=== PATIENT | male | born 1980 | race Caucasian/White ===

== ENCOUNTER 2018-03-10 18:02 | Inpatient (IN) | payer MEDICAID ==
[~2018-03-10] VITALS: Ht 188 cm; Wt 98.0 kg
[~2018-03-10 18:02] MED LIST: NO HOME MEDS; OMEP-84 PO; PROM25TA14 PO
[2018-03-10 21:13] LABS: BASOPHILS # (AUTO) 0.1 X10'3 (0-0.2); BASOPHILS % (AUTO) 0.7 % (0-1); EOSINOPHILS # (AUTO) 0.7 X10'3 (0-0.9); EOSINOPHILS % (AUTO) 6.5 % (0-6); HEMATOCRIT 47.7 % (42.0-52.0); HEMOGLOBIN 15.6 g/dl (14.0-17.9); LYMPHOCYTES # (AUTO) 3.1 X10'3 (1.1-4.8); LYMPHOCYTES % (AUTO) 30.9 % (21-51); MEAN CORPUSCULAR HGB CONC 32.8 % (33.0-36.5); MEAN CORPUSCULAR VOLUME 88.5 FL (78-98); MONOCYTES # (AUTO) 0.8 X10'3 (0-0.9); MONOCYTES % (AUTO) 7.6 % (2-12); NEUTROPHILS # (AUTO) 5.5 X10'3 (1.8-7.7); NEUTROPHILS % (AUTO) 54.3 % (42-75); PLATELET COUNT 211 X10'3 (140-440); RED BLOOD COUNT 5.39 X10'6 (4.70-6.10); RED CELL DISTRIBUTION WIDTH 14.3 % (11.5-14.5); WHITE BLOOD COUNT 10.1 X10'3 (4.5-11.0)
[2018-03-10 21:26] LABS: ALANINE AMINOTRANSFERASE 74 U/L (12-78); ALBUMIN 3.6 G/DL (3.4-5.0); ALBUMIN/GLOBULIN RATIO 1.1 (1.1-1.5); ALKALINE PHOSPHATASE 133 IU/L (46-116); ANION GAP 11 (8-16); ASPARTATE AMINO TRANSFERASE 41 U/L (10-37); BILIRUBIN,TOTAL 0.7 MG/DL (0.1-1.0); BLOOD UREA NITROGEN 28 MG/DL (7-18); CALCIUM 8.9 MG/DL (8.5-10.1); CHLORIDE 105 MMOL/L (99-107); CREATININE 1.47 MG/DL (0.60-1.10); GLUCOSE 104 MG/DL (70-104); POTASSIUM 4.3 MMOL/L (3.5-5.1); SODIUM 143 MMOL/L (135-145); TOTAL CARBON DIOXIDE 26.8 MMOL/L (24-32); eGFR 55 ML/MIN
[2018-03-10 21:34] LABS: D-DIMER 0.46 MG/L FEU (0-0.50)
[2018-03-10 21:35] LABS: TROPONIN I < 0.04 NG/ML (0.0-0.05)
--- NOTE | 2018-03-10 21:36 | NUR ---
Rec'd report from ROHAN [place]. The patient is resting comfortably on gurney, labs are pending. I will continue to monitor.
--- NOTE | 2018-03-10 22:32 | NUR ---
Patient resting comfortably on gurney, reports no heart palpatations or pain.
[2018-03-10] MEDS ORDERED: acetaminophen 325mg tablet PO PRN (23:05)
[2018-03-10] MEDS ORDERED: magnesium hydroxide 30ml (MOM) UD suspension PO PRN (23:05)
[2018-03-10] MEDS ORDERED: ondansetron/PF 4mg/2ml inj IV PRN (23:05)
[2018-03-10] MEDS ORDERED: mag hydrox/Alum hydrox/simeth 30ml oral suspension PO PRN (23:05)
--- NOTE | 2018-03-10 23:39 | NUR ---
Awaiting pt arrival. I have received report from Jenny MADRIGAL and had the opportunity to ask questions and assume patient care.
--- NOTE | 2018-03-10 23:45 | NUR ---
pt arrived with belongings. no signs of distress. IV intact. Significant other at bedside. call light and frq used belongings within reach. will continue to monitor.
[2018-03-11] VITALS (9 sets, daily range): BP systolic 123–141; BP diastolic 86–100
[2018-03-11 05:57] LABS: BASOPHILS # (AUTO) 0.1 X10'3 (0-0.2); BASOPHILS % (AUTO) 0.7 % (0-1); EOSINOPHILS # (AUTO) 0.6 X10'3 (0-0.9); EOSINOPHILS % (AUTO) 6.9 % (0-6); HEMATOCRIT 43.4 % (42.0-52.0); HEMOGLOBIN 14.4 g/dl (14.0-17.9); LYMPHOCYTES # (AUTO) 3.2 X10'3 (1.1-4.8); LYMPHOCYTES % (AUTO) 36.8 % (21-51); MEAN CORPUSCULAR HEMOGLOBIN 29.1 PG (27.0-31.0); MEAN CORPUSCULAR VOLUME 88.2 FL (78-98); MEAN PLATELET VOLUME 10.7 FL (7.4-10.4); MONOCYTES # (AUTO) 0.7 X10'3 (0-0.9); MONOCYTES % (AUTO) 8.1 % (2-12); NEUTROPHILS # (AUTO) 4.2 X10'3 (1.8-7.7); NEUTROPHILS % (AUTO) 47.5 % (42-75); PLATELET COUNT 191 X10'3 (140-440); RED BLOOD COUNT 4.92 X10'6 (4.70-6.10); RED CELL DISTRIBUTION WIDTH 14.4 % (11.5-14.5); WHITE BLOOD COUNT 8.8 X10'3 (4.5-11.0)
--- NOTE | 2018-03-11 06:00 | NUR ---
Problems reprioritized. Patient report given, questions answered & plan of care reviewed with Yulia MADRIGAL.
[2018-03-11 06:05] LABS: ALBUMIN 3.1 G/DL (3.4-5.0); ANION GAP 9 (8-16); BLOOD UREA NITROGEN 26 MG/DL (7-18); BUN/CREATININE RATIO 20.6 (5.4-32.0); CALCIUM 8.2 MG/DL (8.5-10.1); CHLORIDE 107 MMOL/L (99-107); CREATININE 1.26 MG/DL (0.60-1.10); GLUCOSE 108 MG/DL (70-104); POTASSIUM 3.8 MMOL/L (3.5-5.1); SODIUM 141 MMOL/L (135-145); TOTAL CARBON DIOXIDE 24.8 MMOL/L (24-32); eGFR 65 ML/MIN
--- NOTE | 2018-03-11 06:19 | NUR ---
Patient in room [facility]. I have received report from Joann MADRIGAL and had the opportunity to ask questions and assume patient care.
[2018-03-11 07:07] LABS: LARGE PLATELETS FEW; PLATELET ESTIMATE NORMAL
--- NOTE | 2018-03-11 08:16 | NUR ---
Patient reported having chest pain 08/26. Patient pointing across his upper abdomen. EKG STAT ordered. Maye also given Addendum: 03/11/18 at 0828 by Yulia Rain RN EKG done reviewed by Dr. Way.
--- NOTE | 2018-03-11 08:28 | NUR ---
ROHAN Bender reports EKG states "Acute TN". Prior EKG w/o that statement. Pt currently w/o discomfort. Dr. Way reviewed EKG w/ RN and is ordering Troponins and UA Tox Screen. Nsg [employer] Hydraulicker notified.
--- NOTE | 2018-03-11 09:07 | NUR ---
Patient stated being comfortable, no chest pain at the moment. Plan of care like Head CT and VL Carotid were discussed with the patient.
[2018-03-11 09:16] LABS: URINE AMPHETAMINE SCREEN POSITIVE (Neg); URINE BARBITUATE SCREEN NEGATIVE (Neg); URINE BENZODIAZEPINES SCREEN NEGATIVE (Neg); URINE CANNABINOID SCREEN POSITIVE (Neg); URINE COCAINE SCREEN NEGATIVE (Neg); URINE METHADONE SCREEN NEGATIVE (Neg); URINE OPIATE SCREEN NEGATIVE (Neg); URINE PHENCYCLIDINE SCREEN NEGATIVE (Neg)
[2018-03-11 09:16] LABS: TROPONIN I 0.04 NG/ML (0.0-0.05)
[2018-03-11 09:18] LABS: ETHANOL < 0.010 GM/DL (0.0-0.010)
--- NOTE | 2018-03-11 09:43 | NUR ---
Patient went to CT scan via wheelchair
[2018-03-11] MEDS ORDERED: iohexol 350MG/ML 100ml bottle IV ONE (09:53)
[2018-03-11] MEDS ORDERED: FLU VACC QUAD 2018(5 YR UP)/PF 60 MCG/0.5 ML SYRINGE IM ONE (10:00)
[2018-03-11] MEDS ORDERED: potassium Cl 40MEQ/NS 500ml 500 ML IV PRN ×2 (11:05)
[2018-03-11] MEDS ORDERED: aminophylline 250mg/10ml inj. IV PRN (11:05)
[2018-03-11] MEDS ORDERED: metoprolol tartrate 1mg/ml inj IV PRN (11:05)
[2018-03-11] MEDS ORDERED: potassium Cl 20 mEq SR tablet PO PRN ×2 (11:05)
[2018-03-11] MEDS ORDERED: nitroGLYCERIN 0.4mg SUBLingual tab SL PRN ×2 (11:05→11:15)
[2018-03-11] MEDS ORDERED: regadenoson 0.4mg/5ml syringe IV PRN (11:05)
[2018-03-11] MEDS ORDERED: magnesium Cl slow-release 64mg tablet PO PRN (11:05)
[2018-03-11] MEDS ORDERED: magnesium 4gm in 100ml NS 100 ML IV PRN (11:05)
--- NOTE | 2018-03-11 11:09 | NUR ---
Patient sleeping comfortably on his bed. Girlfriend at the bedside
[2018-03-11 12:53] LABS: MAGNESIUM 1.6 MG/DL (1.5-2.4)
[2018-03-11] MEDS: Potassium Cl inj 20 MEQ in normal saline 1000ml 990 ML IV SCH (13:12)
[2018-03-11] MEDS: aspirin 81mg tablet.DR PO SCH (15:37)
[2018-03-11] MEDS: pantoprazole 40mg Tablet.DR PO SCH (15:38)
--- NOTE | 2018-03-11 18:38 | NUR ---
Problems reprioritized. Patient report given, questions answered & plan of care reviewed with Priscilla MADRIGAL.
--- NOTE | 2018-03-11 18:47 | NUR ---
Patient in room [facility]. I have received report from Yulia MADRIGAL and had the opportunity to ask questions and assume patient care.
[2018-03-11] MEDS: heparin, porcine 5000 units/ml vial SQ SCH (19:55)
[2018-03-11] MEDS: metoprolol tartrate 12.5mg (1/2 tablet) PO SCH (19:55)
[2018-03-11] MEDS ORDERED: Melatonin 3mg tablet PO PRN (20:20)
[2018-03-12] VITALS (16 sets, daily range): BP systolic 120–147; BP diastolic 84–103
[2018-03-12] MEDS: Potassium Cl inj 20 MEQ in normal saline 1000ml 990 ML IV SCH ×2 (01:29→17:52)
[2018-03-12 05:21] LABS: BASOPHILS # (AUTO) 0.1 X10'3 (0-0.2); BASOPHILS % (AUTO) 0.5 % (0-1); EOSINOPHILS # (AUTO) 0.6 X10'3 (0-0.9); EOSINOPHILS % (AUTO) 5.6 % (0-6); HEMATOCRIT 45.4 % (42.0-52.0); HEMOGLOBIN 14.8 g/dl (14.0-17.9); LYMPHOCYTES # (AUTO) 3.2 X10'3 (1.1-4.8); LYMPHOCYTES % (AUTO) 32.3 % (21-51); MEAN CORPUSCULAR HEMOGLOBIN 29.2 PG (27.0-31.0); MEAN CORPUSCULAR HGB CONC 32.5 % (33.0-36.5); MEAN CORPUSCULAR VOLUME 89.6 FL (78-98); MEAN PLATELET VOLUME 10.8 FL (7.4-10.4); MONOCYTES # (AUTO) 0.8 X10'3 (0-0.9); MONOCYTES % (AUTO) 8.3 % (2-12); NEUTROPHILS # (AUTO) 5.4 X10'3 (1.8-7.7); NEUTROPHILS % (AUTO) 53.3 % (42-75); PLATELET COUNT 197 X10'3 (140-440); RED BLOOD COUNT 5.07 X10'6 (4.70-6.10); RED CELL DISTRIBUTION WIDTH 14.6 % (11.5-14.5); WHITE BLOOD COUNT 10.1 X10'3 (4.5-11.0)
[2018-03-12 05:33] LABS: ANION GAP 10 (8-16); BLOOD UREA NITROGEN 18 MG/DL (7-18); BUN/CREATININE RATIO 14.2 (5.4-32.0); CALCIUM 8.1 MG/DL (8.5-10.1); CHLORIDE 107 MMOL/L (99-107); CREATININE 1.27 MG/DL (0.60-1.10); GLUCOSE 100 MG/DL (70-104); MAGNESIUM 1.8 MG/DL (1.5-2.4); POTASSIUM 4.1 MMOL/L (3.5-5.1); SODIUM 141 MMOL/L (135-145); TOTAL CARBON DIOXIDE 24.3 MMOL/L (24-32); eGFR 65 ML/MIN
--- NOTE | 2018-03-12 06:27 | NUR ---
Patient in room [facility]. I have received report from ROHAN Wells and had the opportunity to ask questions and assume patient care.
--- NOTE | 2018-03-12 06:29 | NUR ---
Problems reprioritized. Patient report given, questions answered & plan of care reviewed with Rolanda MADRIGAL.
[2018-03-12] MEDS: pantoprazole 40mg Tablet.DR PO SCH (07:30)
[2018-03-12] MEDS: heparin, porcine 5000 units/ml vial SQ SCH ×2 (08:00→19:26)
[2018-03-12] MEDS: metoprolol tartrate 12.5mg (1/2 tablet) PO SCH ×2 (08:00→21:32)
[2018-03-12] MEDS ORDERED: regadenoson 0.4mg/5ml syringe IV ONE (09:01)
[2018-03-12] MEDS ORDERED: aminophylline inj. 10 ML IV ONE (09:01)
[2018-03-12] MEDS: aspirin 81mg tablet.DR PO SCH (10:26)
[2018-03-12 11:19] LABS: LARGE PLATELETS FEW; PLATELET ESTIMATE NORMAL
--- NOTE | 2018-03-12 19:04 | NUR ---
Problems reprioritized. Patient report given, questions answered & plan of care reviewed with ROHAN Mena.
[2018-03-12] MEDS ORDERED: hydrOXYzine 25 MG tablet PO PRN (21:00)
[2018-03-13] VITALS (23 sets, daily range): BP systolic 131–154; BP diastolic 88–107
--- NOTE | 2018-03-13 06:21 | NUR ---
Patient in room [facility]. I have received report from ROHAN Mena and had the opportunity to ask questions and assume patient care.
[2018-03-13 06:27] LABS: ALBUMIN 2.9 G/DL (3.4-5.0); ANION GAP 8 (8-16); BLOOD UREA NITROGEN 18 MG/DL (7-18); BUN/CREATININE RATIO 14.1 (5.4-32.0); CALCIUM 8.2 MG/DL (8.5-10.1); CHLORIDE 108 MMOL/L (99-107); CREATININE 1.28 MG/DL (0.60-1.10); GLUCOSE 99 MG/DL (70-104); MAGNESIUM 1.7 MG/DL (1.5-2.4); POTASSIUM 4.2 MMOL/L (3.5-5.1); SODIUM 142 MMOL/L (135-145); TOTAL CARBON DIOXIDE 26.3 MMOL/L (24-32); eGFR 64 ML/MIN
[2018-03-13] MEDS: pantoprazole 40mg Tablet.DR PO SCH (07:30)
[2018-03-13] MEDS: heparin, porcine 5000 units/ml vial SQ SCH (08:00)
[2018-03-13] MEDS: aspirin 81mg tablet.DR PO SCH (08:46)
[2018-03-13] MEDS: Potassium Cl inj 20 MEQ in normal saline 1000ml 990 ML IV SCH (08:46)
[2018-03-13] MEDS: metoprolol tartrate 12.5mg (1/2 tablet) PO SCH (08:46)
[2018-03-13] MEDS ORDERED: ASPI-1071 PO (11:55)
[2018-03-13] MEDS ORDERED: METO25TA6 PO (11:55)
[2018-03-13] MEDS ORDERED: NITR0.4T51 SL (11:55)
[2018-03-13 12:23] LABS: CHOL/HDL RATIO 3.9 (0.00-4.99); CHOLESTEROL 133 MG/DL (0-200); HDL CHOLESTEROL 34 MG/DL (35-60); LDL CHOLESTEROL 93 MG/DL (50-100); TRIGLYCERIDES 111 MG/DL (20-135)
--- NOTE | 2018-03-13 13:16 | NUR ---
Pt discharged to home with all belongings in private vehicle, accompanied by girlfriend. Discharge instructions reviewed, medications reviewed and call to [facility] on [address]. Pt instructed to follow up with Dr Moreno in 1-2 days, office number provided. IV DC'd, cannula intact. Pt escorted to front lobby by PCT.
== END 2018-03-13 12:32 | disposition home or self-care (01) | DRG 422 ==
LOC: ER 18:03 → SUR 3N 23:02 → CMPBEDREQ 03-11 00:04 → OBSVTOIN 03-12 07:00 → SUR 3N 03-13 10:52
PROVIDERS: ADMIT Hospitalist; ATTEND Hospitalist
PROC: B32T1ZZ Computerized Tomography (CT Scan) of Left Pulmonary Artery using Low Osmolar Contrast (ICD-10-PCS; principal; 2018-03-12)
PROC: B3201ZZ Computerized Tomography (CT Scan) of Thoracic Aorta using Low Osmolar Contrast (ICD-10-PCS; 2018-03-12)
PROC: B32S1ZZ Computerized Tomography (CT Scan) of Right Pulmonary Artery using Low Osmolar Contrast (ICD-10-PCS; 2018-03-12)
PROC: 4A02XM4 Measurement of Cardiac Total Activity, External Approach (ICD-10-PCS; 2018-03-12)
PROC: 3E033HZ Introduction of Radioactive Substance into Peripheral Vein, Percutaneous Approach (ICD-10-PCS; 2018-03-12)
DX: E86.0 Dehydration (principal); I11.0 Hypertensive heart disease with heart failure; I27.20 Pulmonary hypertension, unspecified; I42.0 Dilated cardiomyopathy; I50.9 Heart failure, unspecified; E11.9 Type 2 diabetes mellitus without complications; E78.5 Hyperlipidemia, unspecified; F19.10 Other psychoactive substance abuse, uncomplicated; D18.09 Hemangioma of other sites; Z80.8 Family history of malignant neoplasm of other organs or systems; Z87.11 Personal history of peptic ulcer disease; Z71.51 Drug abuse counseling and surveillance of drug abuser
CPT/HCPCS: 36415; 70450; 71046; 71275; 76700; 78452; 80048; 80053; 80061; 80305; 80320; 83735; 83880; 84145; 84484; 85025; 85379; 87040; 87070; 93005; 93017; 93306; 93880; 99285; A9500; G0378; J0280; J1644; J3480; J7030; Q0177; Q2037; Q9967

== ENCOUNTER 2020-03-10 08:59 | Day surgery (SDC) | payer MEDICAID ==
[~2020-03-10] VITALS: Ht 188 cm; Wt 99.7 kg
[2020-03-10] VITALS (9 sets, daily range): BP systolic 110–129; BP diastolic 75–93
[~2020-03-10 08:59] MED LIST changes: +ASPI-1071 PO; +METO25TA6 PO; -NO HOME MEDS; -OMEP-84 PO; -PROM25TA14 PO
[2020-03-10] MEDS ORDERED: diphenhydrAMINE 25mg capsule PO PRN (09:25)
[2020-03-10] MEDS ORDERED: HYDR12.55 PO (09:30)
[2020-03-10] MEDS ORDERED: CARV-49 PO (09:30)
[2020-03-10] MEDS ORDERED: POTA20TA19 PO (09:30)
[2020-03-10] MEDS ORDERED: TORS100T15 PO (09:30)
[2020-03-10 09:42] LABS: BASOPHILS # (AUTO) 0.1 X10'3 (0-0.2); BASOPHILS % (AUTO) 1.2 % (0-1); EOSINOPHILS # (AUTO) 0.4 X10'3 (0-0.9); HEMATOCRIT 51.9 % (42.0-52.0); HEMOGLOBIN 17.1 g/dl (14.0-17.9); LYMPHOCYTES # (AUTO) 1.6 X10'3 (1.1-4.8); MEAN CORPUSCULAR HEMOGLOBIN 28.8 PG (27.0-31.0); MEAN CORPUSCULAR HGB CONC 32.9 g/dL (33.0-36.5); MEAN CORPUSCULAR VOLUME 87.5 FL (78-98); MEAN PLATELET VOLUME 9.8 FL (7.4-10.4); NEUTROPHILS # (AUTO) 5.4 X10'3 (1.8-7.7); NEUTROPHILS % (AUTO) 62.8 % (42-75); PLATELET COUNT 225 X10'3 (140-440); RED BLOOD COUNT 5.92 X10'6 (4.70-6.10); RED CELL DISTRIBUTION WIDTH 15.1 % (11.5-14.5); WHITE BLOOD COUNT 8.7 X10'3 (4.5-11.0)
[2020-03-10 09:49] LABS: ALBUMIN 3.6 G/DL (3.4-5.0); ANION GAP 6 (8-16); BLOOD UREA NITROGEN 24 MG/DL (7-18); BUN/CREATININE RATIO 19.4 (5.4-32.0); CALCIUM 9.1 MG/DL (8.5-10.1); CHLORIDE 95 MMOL/L (99-107); CREATININE 1.24 MG/DL (0.60-1.10); GLUCOSE 132 MG/DL (70-104); MAGNESIUM 1.9 MG/DL (1.5-2.4); SODIUM 135 MMOL/L (135-145); TOTAL CARBON DIOXIDE 34.5 MMOL/L (24-32); eGFR 66 ML/MIN
[2020-03-10 09:52] LABS: POTASSIUM 2.9 MMOL/L (3.5-5.1)
--- NOTE | 2020-03-10 10:00 | NUR ---
Dr. Monge notified of k 2.9
[2020-03-10] MEDS ORDERED: potassium Cl 20 mEq SR tablet PO STA ×2 (10:19→14:15)
[2020-03-10] MEDS ORDERED: potassium Cl 10 mEq/100mL bag IV ONE (10:20)
[2020-03-10] MEDS ORDERED: iohexol 350MG/ML 100ml bottle IV ONE (11:14)
[2020-03-10] MEDS ORDERED: LIDOcaine 1% (10mg/ml)w/preservative injection 20ml MDV ONE (11:14)
[2020-03-10] MEDS ORDERED: fentaNYL/PF 50MCG/1 ML 2ML syringe ONE (11:14)
[2020-03-10] MEDS ORDERED: heparin 1,000unit/ml 10ml vial 10 ML ONE (11:14)
[2020-03-10] MEDS ORDERED: midazolam 2 mg/2 ml injection ONE (11:14)
[2020-03-10] MEDS ORDERED: iohexol 350 MG/ML 50ML vial IV ONE (11:14)
[2020-03-10] MEDS ORDERED: HYDROcodone/acetaminophen 10/325mg tab PO PRN (12:50)
[2020-03-10] MEDS ORDERED: HYDROcodone/acetaminophen 5mg/325mg tablet PO PRN (12:50)
[2020-03-10] MEDS ORDERED: OXAZEpam 15mg capsule PO PRN (12:50)
[2020-03-10] MEDS ORDERED: normal saline 1000ml 1,000 ML IV SCH (12:50)
== END 2020-03-10 16:00 | disposition home or self-care (01) ==
LOC: SSTAY O 08:59
PROVIDERS: ATTEND Internal Medicine Cardiovascular Disease
DX: I42.9 Cardiomyopathy, unspecified (principal); I27.20 Pulmonary hypertension, unspecified; I07.1 Rheumatic tricuspid insufficiency; F15.90 Other stimulant use, unspecified, uncomplicated; F10.20 Alcohol dependence, uncomplicated; F17.210 Nicotine dependence, cigarettes, uncomplicated; Z79.899 Other long term (current) drug therapy
CPT/HCPCS: 36415; 80048; 83735; 84132; 85025; 85610; 93005; 93460; 99152; 99153; C1760; C1769; C1894; J1644; J2001; J2250; J3010; J3480; Q0163; Q9967; A4620; A6258; C1751

== ENCOUNTER 2022-09-28 07:07 | Emergency (ER) | payer MEDICAID ==
[~2022-09-28] VITALS: Ht 188 cm; Wt 97.7 kg
[~2022-09-28 07:07] MED LIST changes: -ASPI-1071 PO; +CARV-49 PO; +HYDR12.55 PO; -METO25TA6 PO; +POTA-207 PO; +TORS100T15 PO
[2022-09-28 07:20] VITALS: TEMP 98.7
[2022-09-28] MEDS ORDERED: ondansetron 4mg rapidly disintigrating tab PO ONE (08:00)
[2022-09-28] MEDS ORDERED: furosemide 10 MG/1 ML 10ml inj IV ONE ×2 (08:00→12:05)
--- NOTE | 2022-09-28 08:09 | NUR ---
DR ALCARAZ AT BEDSIDE AND RN NOTIFIED HIM PT SYS 93. PER HE WILL PLACE ORDS.
--- NOTE | 2022-09-28 08:14 | NUR ---
LAB AT BEDSIDE. RN WILL HOLD LASIX UNTIL K RESULTED.
[2022-09-28 08:26] LABS: BASOPHILS # (AUTO) 0.1 X10'3 (0-0.2); BASOPHILS % (AUTO) 0.9 % (0-1); EOSINOPHILS # (AUTO) 0.4 X10'3 (0-0.9); EOSINOPHILS % (AUTO) 4.4 % (0-6); HEMATOCRIT 39.9 % (42.0-52.0); HEMOGLOBIN 12.9 g/dl (14.0-17.9); LYMPHOCYTES % (AUTO) 12.3 % (21-51); MEAN CORPUSCULAR HEMOGLOBIN 25.8 PG (27.0-31.0); MEAN CORPUSCULAR HGB CONC 32.4 g/dL (33.0-36.5); MEAN CORPUSCULAR VOLUME 79.6 FL (78-98); MEAN PLATELET VOLUME 10.1 FL (7.4-10.4); MONOCYTES # (AUTO) 0.9 X10'3 (0-0.9); NEUTROPHILS # (AUTO) 5.7 X10'3 (1.8-7.7); NEUTROPHILS % (AUTO) 71.4 % (42-75); PLATELET COUNT 249 X10'3 (140-440); RED BLOOD COUNT 5.01 X10'6 (4.70-6.10)
[2022-09-28 08:39] LABS: ALANINE AMINOTRANSFERASE 23 U/L (12-78); ALBUMIN 1.4 G/DL (3.4-5.0); ALBUMIN/GLOBULIN RATIO 0.4 (1.1-1.5); ALKALINE PHOSPHATASE 233 IU/L (46-116); ANION GAP 11 (8-16); ASPARTATE AMINO TRANSFERASE 41 U/L (10-37); BILIRUBIN,TOTAL 1.4 MG/DL (0.1-1.0); BLOOD UREA NITROGEN 34 MG/DL (7-18); BUN/CREATININE RATIO 24.5 (10.0-20.0); CALCIUM 7.9 MG/DL (8.5-10.1); CHLORIDE 88 MMOL/L (99-107); CREATININE 1.39 MG/DL (0.60-1.10); GLUCOSE 128 MG/DL (70-104); POTASSIUM 3.4 MMOL/L (3.5-5.1); SODIUM 130 MMOL/L (135-145); TOTAL CARBON DIOXIDE 30.9 MMOL/L (24-32); TOTAL PROTEIN 4.8 G/DL (6.4-8.2); eCRCL 82 ML/MIN; eGFR 57 ML/MIN
[2022-09-28 08:40] LABS: APTT 27 SECONDS (22-32); INR 1.1 INR
[2022-09-28 08:47] LABS: C-REACTIVE PROTEIN 1.44 MG/DL (0.0-0.5); ETHANOL < 10 MG/DL (<10); MAGNESIUM 1.8 MG/DL (1.5-2.4); PRO BRAIN NATRIURETIC PEPTIDE 6694 PG/ML (0-125)
--- NOTE | 2022-09-28 09:05 | NUR ---
PER DR LISSA SEVILLA LASMELY D/T PT K 3.4.
[2022-09-28 09:08] LABS: PROTHROMBIN TIME 11.4 SECONDS (9.0-12.0)
[2022-09-28] MEDS ORDERED: LIDOcaine 2% 10ml TOPICAL JELLY (Urojet) TP ONE (09:55)
--- NOTE | 2022-09-28 09:55 | NUR ---
PER DR ALCARAZ PLACE JACQUES/LEAVE IN PLACE/THEN DC. RN WILL CONFIRM P/T DC.
--- NOTE | 2022-09-28 10:02 | NUR ---
RN UNABLE TO GET LIDOCAINE JELLY FROM [facility] FOR JACQUES PLACEMENT. PHARM WILL ADJUST TO ONE STOCKED IN CABINET THEN JACQUES WILL BE PLACED.
[2022-09-28] MEDS: LidoCAINE 2% Topical Jelly 11mL syringe TOP ONE ×2 (10:07→10:10)
[2022-09-28 10:52] LABS: BILIRUBIN,URINE NEGATIVE (Neg); CLARITY,URINE CLEAR (Clear); COLOR,URINE YELLOW (Yellow); GLUCOSE, URINE NEGATIVE (Neg); KETONES,URINE NEGATIVE (Neg); LEUKOCYTE ESTERASE ,URINE NEGATIVE (Neg); NITRITES, URINE NEGATIVE (Neg); OCCULT BLOOD,URINE NEGATIVE (Neg); PH,URINE 5.5 (4.8-8.0); PROTEIN,URINE NEGATIVE (Neg); UROBILINOGEN,URINE 0.2 E.U/dL (0.2-1.0)
[2022-09-28 10:56] LABS: UA COLLECTION TYPE FOLEY CATH
[2022-09-28 11:09] LABS: URINE AMPHETAMINE SCREEN NEGATIVE (Neg); URINE BARBITUATE SCREEN NEGATIVE (Neg); URINE BENZODIAZEPINES SCREEN NEGATIVE (Neg); URINE CANNABINOID SCREEN POSITIVE (Neg); URINE COCAINE SCREEN NEGATIVE (Neg); URINE METHADONE SCREEN NEGATIVE (Neg); URINE OPIATE SCREEN POSITIVE (Neg); URINE PHENCYCLIDINE SCREEN NEGATIVE (Neg)
[2022-09-28 12:09] VITALS: BP 100/67; PULSE 96; RESP 15
--- NOTE | 2022-09-28 12:12 | NUR ---
PER DR ALCARAZ ICU MD NOTIFIED HIM THAT LASIX NEEDS TO BE GIVEN AND STRICK OUTPUT RECORDED
[2022-09-28 12:37] VITALS: O2SAT 91
--- NOTE | 2022-09-28 13:06 | NUR ---
PT AND PT MOTHER INSISITING THE RN BRING AN AMA FORM D/T THEY ARE GOING BACK TO [facility]. RN EDUCATED PT AND PT MOTHER OF RISKS OF LEAVING AMA AND THERE IS A CHANCE THE PT WILL . BOTH PT AND PT MOTHER VERBALIZED UNDERSTANDING AND AGREED TO SIGN THE FORM. LABORER [employer] P[employer]ING[employer]YN RAHMAN WILL PROVIDE THE AMA FORM/DC THE JACQUES/DC THE IV AND CONT TO TRY TO EDUCATE THE PT ABOUT RISKS.
== END 2022-10-30 07:51 | disposition left against medical advice (07) ==
LOC: ER 07:08
DX: I27.20 Pulmonary hypertension, unspecified (principal); I50.9 Heart failure, unspecified; Z20.822 Contact with and (suspected) exposure to COVID-19; Z72.89 Other problems related to lifestyle; Z98.890 Other specified postprocedural states; Z79.899 Other long term (current) drug therapy
CPT/HCPCS: 36415; 71045; 80053; 80305; 80320; 81003; 83605; 83735; 83880; 84145; 84484; 85025; 85610; 85651; 85730; 86140; 87040; 87811; 93005; 96374; 99285; J1940; A4314